=== PATIENT | female | born 1950 | race Caucasian/White ===

== ENCOUNTER 2018-07-12 09:23 | Outpatient (CLI) | payer OTHER ==
[2018-07-12] MEDS ORDERED: LOVA40TA2 PO (09:56)
[2018-07-19] MEDS ORDERED: LIDOCAINE 1%-EPI 1:100K, 30ML ONE (06:20)
[2018-07-19] MEDS ORDERED: ROPIvacaine/PF 0.5%, 30 ML ONE (06:20)
== END 2018-07-12 23:59 | disposition home or self-care (01) ==
LOC: STAR 09:23
PROVIDERS: ATTEND Orthopaedic Surgery
DX: Z01.818 Encounter for other preprocedural examination (principal); S83.232A Complex tear of medial meniscus, current injury, left knee, initial encounter; S83.272A Complex tear of lateral meniscus, current injury, left knee, initial encounter; M94.262 Chondromalacia, left knee; X58.XXXA Exposure to other specified factors, initial encounter; Y93.89 Activity, other specified; Y92.89 Other specified places as the place of occurrence of the external cause; Y99.8 Other external cause status
CPT/HCPCS: 93005

== ENCOUNTER 2018-07-19 05:22 | Day surgery (SDC) | payer OTHER ==
[2018-07-12 09:57] VITALS: BP 145/83
[~2018-07-19] VITALS: Ht 162.6 cm; Wt 65.6 kg
[~2018-07-19 05:22] MED LIST: LOVA40TA2 PO
[2018-07-19] MEDS ORDERED: LACTATED RINGERS 1,000 ML IV SCH (05:54)
[2018-07-19 05:57] VITALS: BP 145/83
[2018-07-19] MEDS ORDERED: FENTANYL PF 100 MCG/2ML ONE (06:26)
[2018-07-19] MEDS ORDERED: PROPOFOL 10 MG/ML, 20ML ONE (07:01)
[2018-07-19] MEDS ORDERED: DEXAMETHASONE 4 MG/ML, 1ML ONE (07:01)
[2018-07-19] MEDS ORDERED: ONDANSETRON 2MG/ML, 2ML ONE (07:01)
[2018-07-19] MEDS ORDERED: CEFAZOLIN 1,000 MG ONE (07:01)
[2018-07-19] MEDS ORDERED: ROPIvacaine/PF 0.5%, 30 ML INFIL ONE (07:18)
[2018-07-19] MEDS ORDERED: LIDOCAINE 1%-EPI 1:100K, 30ML INFIL ONE (07:19)
[2018-07-19] MEDS ORDERED: EPHEDRINE 50 MG/ML, 1ML IVPush PRN (08:00)
[2018-07-19] MEDS ORDERED: PROMETHAZINE 25 MG SUPP PR PRN (08:00)
[2018-07-19] MEDS ORDERED: MIDAZOLAM 1 MG/ML, 2ML IV PRN (08:00)
[2018-07-19] MEDS ORDERED: MORPHINE SULFATE 4 MG/ML, 1ML IVPush PRN (08:00)
[2018-07-19] MEDS ORDERED: MEPERIDINE/PF 25MG/0.5ML IVPush PRN (08:00)
[2018-07-19] MEDS ORDERED: PROMETHAZINE 25 MG/ML, 1ML IM PRN (08:00)
[2018-07-19] MEDS ORDERED: OXYcodone 5 MG/5 ML ORAL.SOL UDC PO PRN (08:00)
[2018-07-19] MEDS ORDERED: HALOPERIDOL 5 MG/ML IV PRN (08:00)
[2018-07-19] MEDS ORDERED: LABETALOL 5MG/ML, 20ML IV PRN (08:00)
[2018-07-19] MEDS ORDERED: DIAZEPAM 5 MG/ML, 2ML IVPush PRN (08:00)
[2018-07-19] MEDS ORDERED: ONDANSETRON 2MG/ML, 2ML IV PRN (08:00)
[2018-07-19] MEDS ORDERED: HYDROmorphone 2 MG/ML, 1ML IVPush PRN (08:00)
[2018-07-19] MEDS ORDERED: hydrALAzine 20 MG/ML, 1ML IV PRN (08:00)
[2018-07-19] MEDS ORDERED: FENTANYL PF 100 MCG/2ML IV PRN (08:00)
[2018-07-19] MEDS ORDERED: ONDANSETRON ODT 8 MG PO PRN (08:00)
[2018-07-19] MEDS ORDERED: ALBUTEROL SULFATE 2.5 MG/3 ML NPPB PRN (08:00)
[2018-07-19] MEDS ORDERED: ACETAMINOPHEN 650 MG/20.3 ML UDC ONE (08:17)
[2018-07-19] MEDS ORDERED: OXYcodone 5 MG/5 ML ORAL.SOL UDC ONE (08:17)
[2018-07-19] MEDS ORDERED: ACETAMINOPHEN 650 MG/20.3 ML UDC PO PRN (08:30)
== END 2018-07-19 09:30 | disposition home or self-care (01) ==
LOC: OUT 05:22
PROVIDERS: ATTEND Orthopaedic Surgery
DX: S83.242A Other tear of medial meniscus, current injury, left knee, initial encounter (principal); S83.282A Other tear of lateral meniscus, current injury, left knee, initial encounter; M94.262 Chondromalacia, left knee; E78.5 Hyperlipidemia, unspecified; X58.XXXA Exposure to other specified factors, initial encounter; Y93.89 Activity, other specified; Y92.89 Other specified places as the place of occurrence of the external cause; Y99.8 Other external cause status; Z88.8 Allergy status to other drugs, medicaments and biological substances; Z90.710 Acquired absence of both cervix and uterus; Z98.51 Tubal ligation status; Z98.890 Other specified postprocedural states
CPT/HCPCS: 29880; J0690; J1100; J2405; J2704; J2795; J3010; J3490; J7120